=== PATIENT | male | born 1975 | race Caucasian/White ===

== ENCOUNTER → 2017-10-17 | Outpatient (CLI) | payer BC ==
--- NOTE | 2017-10-17 17:24 | Diagnostic Imaging Report ---
INDICATION: Back injury from lifting weights Thoracic spine AP and lateral views of the thoracic spine show normal vertebral body height and alignment. Disc spaces are well maintained. IMPRESSION: Negative thoracic spine Dictated by: Dictated on workstation # [id number]
== END ==
LOC: RAD 16:23
PROVIDERS: ATTEND Nurse Practitioner Family
DX: S29.9XXA Unspecified injury of thorax, initial encounter (principal); X50.0XXA Overexertion from strenuous movement or load, initial encounter
CPT/HCPCS: 72072

== ENCOUNTER → 2018-09-25 | Outpatient (CLI) | payer BC ==
--- NOTE | 2018-09-25 11:06 | Diagnostic Imaging Report ---
PROCEDURE: MRI left joint lower extremity without contrast. TECHNIQUE: Multiplanar, multisequence MR imaging of the left knee was performed without contrast. COMPARISON: None available. INDICATION: Chronic left knee pain. FINDINGS: MENISCI Medial meniscus: Normal. Lateral meniscus: Normal. LIGAMENTS ACL: Intact. PCL: Intact. MCL: Intact. LCL: The lateral collateral ligamentous complex is intact. EXTENSOR MECHANISM The extensor mechanism is intact. CARTILAGE Medial compartment: Medial compartment articular cartilage is well preserved without focal high-grade chondromalacia. Lateral compartment: Partial-thickness articular cartilage fibrillation in the posterior weightbearing aspect. Multiple areas of full-thickness articular cartilage loss are present throughout the lateral patellar facet and Patellofemoral compartment: Patellar apex. Underlying subchondral bone marrow edema is present. Opposing femoral trochlea osseous full-thickness articular cartilage loss and underlying subchondral cystic change. BONE No fracture, stress fracture or osteonecrosis. SOFT TISSUE No knee effusion or Mahajan's cyst. IMPRESSION: 1. Advanced degenerative arthritis in the patellofemoral compartment with multiple areas of full-thickness articular cartilage loss and underlying subchondral bone marrow edema. Correlation for anterior knee pain is advised. 2. No meniscal tear. 3. Articular cartilage in the medial and lateral compartments have no full-thickness defects. Dictated by: Dictated on workstation # [id number]
== END ==
LOC: RAD 08:22
PROVIDERS: ATTEND Family Medicine
DX: M17.12 Unilateral primary osteoarthritis, left knee (principal); M94.8X8 Other specified disorders of cartilage, other site; M89.9 Disorder of bone, unspecified
CPT/HCPCS: 73721